=== PATIENT | male | born 1955 | race Caucasian/White ===

== ENCOUNTER 2017-05-25 17:59 | Emergency (ER) | payer OTHER ==
[2017-05-25] MEDS ORDERED: HYDROmorphone 1 MG/ML SYRINGE IM STA (18:35)
[2017-05-25] MEDS ORDERED: SODIUM CHLORIDE 0.9% 1,000 ML IV ONE ×2 (18:35→19:26)
[2017-05-25] MEDS ORDERED: ONDANSETRON 4 MG/2 ML VIAL IVP STA ×2 (18:35→19:35)
[2017-05-25 18:40] LABS: BASOPHILS # (AUTO) 0.1 10^3/uL (0.0-0.1); BASOPHILS % (AUTO) 1.1 %; EOSINOPHILS # (AUTO) 0.2 10^3/uL (0.0-0.7); EOSINOPHILS % (AUTO) 2.6 %; HCT - HEMATOCRIT 45.2 % (42.0-52.0); HGB - HEMOGLOBIN 15.3 g/dL (14.0-18.0); LYMPHOCYTES # (AUTO) 1.3 10^3/uL (1.5-3.5); LYMPHOCYTES % (AUTO) 16.6 %; MEAN CORPUSCULAR HEMOGLOBIN 31.2 pg (27.0-31.0); MEAN CORPUSCULAR HGB CONC 33.9 g/dL (32.0-36.0); MEAN CORPUSCULAR VOLUME 92.1 fL (80.0-94.0); MEAN PLATELET VOLUME 8.6 fL (7.4-11.4); MONOCYTES # (AUTO) 0.8 10^3/uL (0.0-1.0); MONOCYTES % (AUTO) 10.2 %; NEUTROPHILS # (AUTO) 5.6 10^3/uL (1.5-6.6); NEUTROPHILS % (AUTO) 69.5 %; NUCLEATED RED BLOOD CELLS AUTO 0.1 /100WBC; RED BLOOD COUNT 4.91 10^6/uL (4.70-6.10); UNCORRECTED WHITE BLOOD COUNT 8.1 x10^3/uL; WHITE BLOOD COUNT 8.1 x10^3/uL (4.8-10.8)
--- NOTE | 2017-05-25 18:40 | ED Physician Documentation ---
History of Present Illness - Stated complaint Stated Complaint: NAUSEA - Chief complaint Chief Complaint: Abd Pain - History obtained from History obtained from: Patient - Additonal information Additional information: Patient is a 62-year-old man who for the most part is fairly healthy. He does have a history of PACs, PVCs and a past history of diverticulitis as well as a inguinal hernia. The patient has had abdominal pain off and on since Tuesday. Initially the abdominal pain was lower and was associated mild nausea, vomiting and a few episodes of diarrhea. The pain is ascended somewhat and now is under his rib cage bilaterally right worse than left it sometimes radiates to the posterior back.Had a couple more episodes of nausea and vomiting and diarrhea. He denies any fever. He has not had any chest pain or shortness of breath. The episode of diverticulitis was diagnosed fairly recently so we have a CT scan that showed a normal aorta within the year. He denies having any lower urinary symptoms. Review of systems: For pertinent positive and negatives in the review of systems please see history of present illness. Otherwise all other systems have been reviewed and are negative. Dragon disclaimer: Parts of this medical record were created using voice recognition technology. Because of the inherent limitations of this system occasional same sounding word substitutions do occur and persist despite proofreading. Please read the document for context. Review of Systems Ten Systems: 10 systems reviewed and negative Constitutional: denies: Fever, Chills Cardiac: denies: Chest pain / pressure, Palpitations Respiratory: denies: Dyspnea, Cough GI: reports: Abdominal Pain, Nausea, Vomiting, Diarrhea. denies: Constipation, Hematemesis, Bloody / black stool : denies: Dysuria, Frequency, Hesitancy, Testicular pain Musculoskeletal: reports: Back pain. denies: Neck pain Neurologic: denies: Generalized weakness, Focal weakness, Numbness PD PAST MEDICAL HISTORY - Past Medical History Cardiovascular: None Respiratory: None Neuro: None Endocrine/Autoimmune: None GI: None : Benign prostate hypertrophy HEENT: None Psych: None Musculoskeletal: None Derm: None - Past Surgical History Past Surgical History: Yes Ortho: Spine surgery HEENT: Tonsil/Adenoidectomy - Present Medications Home Medications: Ambulatory Orders Medication Instructions Recorded Confirmed Doxazosin [Cardura] 8 mg PO DAILY 04/07/13 05/25/17 Finasteride 5 mg PO DAILY 04/07/13 05/25/17 Ondansetron Odt [Zofran] 4 mg TL Q6H PRN #14 tablet 05/25/17 Tramadol HCl 50 mg PO Q8HR PRN #14 tablet 05/25/17 - Allergies Allergies/Adverse Reactions: Allergies Allergy/AdvReac Type Severity Reaction Status Date / Time acetaminophen [From Endocet] Allergy Intermediate Rash Verified 04/07/13 21:55 oxycodone HCl * Allergy Intermediate Rash Verified 04/07/13 21:55 [From Endocet] - Social History Does the pt smoke?: No Smoking Status: Never smoker Does the pt drink ETOH?: No Does the pt have substance abuse?: No - Immunizations Immunizations are current?: Yes - POLST Patient has POLST: No PD ED PE NORMAL - General General: Alert and oriented X 3, No acute distress, Well developed/nourished - HEENT HEENT: Atraumatic, PERRL - Neck Neck: Supple, no meningeal sign - Cardiac Cardiac: RRR, No murmur, No gallop - Respiratory Respiratory: No respiratory distress, Clear bilaterally - Abdomen Abdomen: Normal bowel sounds, Non tender - Back Back: No CVA TTP - Derm Derm: Normal color, Warm and dry - Extremities Extremities: No deformity, No tenderness to palpate, Normal ROM s pain, No edema - Neuro Neuro: Alert and oriented X 3, 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, No motor deficit, No sensory deficit - Psych Psych: Normal mood, Normal affect Results - Vitals Vitals: Vital Signs - 24 hr 05/25/17 05/25/17 05/25/17 18:06 19:52 21:03 Temperature 36.9 C Heart Rate 75 56 L 58 L Respiratory 17 18 18 Rate Blood Pressure 142/81 H 130/76 127/71 O2 Saturation 97 96 96 Oxygen O2 Source Room air - Labs Labs: Laboratory Tests 05/25/17 05/25/17 05/25/17 18:08 18:08 18:08 WBC 8.1 RBC 4.91 Hgb 15.3 Hct 45.2 MCV 92.1 MCH 31.2 H MCHC 33.9 RDW 13.0 Plt Count 256 MPV 8.6 Neut # 5.6 Lymph # 1.3 L [place] # 0.8 Eos # 0.2 Baso # 0.1 Absolute Nucleated RBC 0.01 Nucleated RBCs 0.1 Sodium 139 Potassium 3.9 Chloride 105 Carbon Dioxide 25 Anion Gap 9.0 BUN 13 Creatinine 1.1 Estimated GFR (MDRD) 68 L Glucose 99 Calcium 9.2 Total Bilirubin 1.2 H AST 110 H ALT 98 H Alkaline Phosphatase 116 Troponin I < 0.04 Total Protein 7.2 Albumin 4.5 Globulin 2.7 Albumin/Globulin Ratio 1.7 Lipase 32 Urine Color Urine Clarity Urine pH Ur Specific [place] Urine Protein Urine Glucose (UA) Urine Ketones Urine Occult Blood Urine Nitrite Urine Bilirubin Urine Urobilinogen Ur Leukocyte Esterase Ur Microscopic Review Urine Culture Comments 05/25/17 19:11 WBC RBC Hgb Hct MCV MCH MCHC RDW Plt Count MPV Neut # Lymph # [place] # Eos # Baso # Absolute Nucleated RBC Nucleated RBCs Sodium Potassium Chloride Carbon Dioxide Anion Gap BUN Creatinine Estimated GFR (MDRD) Glucose Calcium Total Bilirubin AST ALT Alkaline Phosphatase Troponin I Total Protein Albumin Globulin Albumin/Globulin Ratio Lipase Urine Color YELLOW Urine Clarity CLEAR Urine pH 5.5 Ur Specific [place] >=1.030 H Urine Protein NEGATIVE Urine Glucose (UA) NEGATIVE Urine Ketones NEGATIVE Urine Occult Blood NEGATIVE Urine Nitrite NEGATIVE Urine Bilirubin NEGATIVE Urine Urobilinogen 2 H Ur Leukocyte Esterase NEGATIVE Ur Microscopic Review NOT INDICATED Urine Culture Comments NOT INDICATED PD MEDICAL DECISION MAKING - ED course Complexity details: reviewed old records, reviewed results, re-evaluated patient , considered differential, d/w patient ED course: Patient is a 62-year-old male who presents with a complaint of nausea, vomiting , lower abdominal pain that is now ascending. The pain at this point is now in the upper abdomen which sometimes radiates into the back. On examination he has a soft mostly nontender abdomen and some discomfort over McBurney's. Blood work shows mild elevation of his bilirubin and transaminases. My quick ultrasound demonstrated a gallstone. A formal ultrasound demonstrates gallstones and mild extrahepatic ductal dilatation. Based on these findings I did do a CT scan and the CT scan of his abdomen essentially is unremarkable.Patient is doing well clinically. He did have ketonuria and was given a liter of normal saline at this point feels better. I think the gallstones are probably causally related to his abdominal pain. We discussed the treatment plan which includes a low-fat diet pain and nausea medications as well as follow-up. The patient prefers to follow-up with his physician first and then be assigned to surgeon. At this point in time he is discharged home in improved condition Disposition: To home Clinical impression: 1. Cholelithiasis with mild extrahepatic ductal dilatation 2. Suspect biliary colic Departure - Departure Disposition: 01 Home, Self Care Clinical Impression: Colic, biliary Condition: Good Instructions: ED Gallstone W Biliary Colic Follow-Up: Max Mcclelland DO [Primary Care Provider] - Prescriptions: Tramadol HCl 50 mg PO Q8HR PRN #14 tablet PRN Reason: Pain Ondansetron Odt [Zofran] 4 mg TL Q6H PRN #14 tablet PRN Reason: Nausea / Vomiting
[2017-05-25] MEDS ORDERED: ONDANSETRON 4 MG/2 ML VIAL ONE ×2 (18:47→19:36)
[2017-05-25 19:00] LABS: ALBUMIN/GLOBULIN RATIO 1.7 (1.0-2.2); BILIRUBIN,TOTAL 1.2 mg/dL (0.2-1.0); CALCIUM 9.2 mg/dL (8.5-10.3); CREATININE 1.1 mg/dL (0.6-1.2); POTASSIUM 3.9 mmol/L (3.5-5.0); TOTAL PROTEIN 7.2 g/dL (6.7-8.2)
[2017-05-25 19:22] LABS: BILIRUBIN,URINE NEGATIVE (NEGATIVE); PH,URINE 5.5 PH (5.0-7.5)
[2017-05-25 19:25] LABS: UA CHARGE (STRIP ONLY) YES; UR CULTURE IF IND NOT INDICATED
--- NOTE | 2017-05-25 20:12 | Ultrasound Report ---
EXAM: ABDOMEN ULTRASOUND LIMITED, RUQ EXAM DATE: 05/25/2017 06:40 PM. CLINICAL HISTORY: Upper abdominal pain. Nausea. COMPARISON: None. TECHNIQUE: Real-time scanning was performed with static images obtained. FINDINGS: Liver: The liver is enlarged and slightly increased in echogenicity. No focal lesions. 16.6 cm. Main portal vein flow: Hepatopetal. Gallbladder: Multiple mobile stones in the gallbladder. No gallbladder wall thickening. No sonographi c Lockwood sign present. Biliary System: CBD measures 10 mm. No intrahepatic or extrahepatic ductal dilatation. Other: None. IMPRESSION: 1. Multiple mobile stones in the gallbladder with mild extrahepatic biliary ductal dilatation. No dis pepper stone, mass or stricture identified. No gallbladder wall thickening. No sonographic Lockwood sign e licited during the examination. Findings are equivocal and if there is continued clinical concern for acute cholecystitis a HIDA scan may be of benefit. 2. Hepatomegaly with hepatic parenchymal disease (likely fatty liver). No focal lesion. [facility] Referring Provider Line: [phone] SITE ID: [id number]
[2017-05-25] MEDS ORDERED: IOPAMIDOL-300 100 ML VIAL IVP ONE (20:25)
--- NOTE | 2017-05-25 20:40 | CT Preliminary Report ---
Exam: CT Abdomen/Pelvis W/ IMPRESSION: 1. No bowel obstruction or inflammatory process associated without. 2. Diverticulosis without diverticulitis. 3. No free air or fluid in the abdomen or pelvis. 4. Cholelithiasis without evidence of cholecystitis. [facility] SITE ID: [id number]
--- NOTE | 2017-05-25 20:42 | CT Report ---
EXAM: CT ABDOMEN AND PELVIS EXAM DATE: 05/25/2017 08:29 PM. CLINICAL HISTORY: Gen ab pain-not sure gallstones explain, hx divert. COMPARISONS: None. TECHNIQUE: Routine helical CT imaging was performed through the abdomen and pelvis. IV contrast: Amt/ type. Enteric contrast: No. Reconstructions: Coronal and sagittal. In accordance with CT protocol optimization, one or more of the following dose reduction techniques w ere utilized for this exam: automated exposure control, adjustment of mA and/or KV based on patient s ize, or use of iterative reconstructive technique. FINDINGS: Lung Bases: Unremarkable. Liver: Normal. No masses. Gallbladder/Bile Ducts: Multiple calcified stones in the gallbladder. No intrahepatic or extra hepati c biliary ductal dilatation. Spleen: Normal. Pancreas: Normal. Adrenal Glands: Normal. Kidneys: Normal. No masses or hydronephrosis. Peritoneal Cavity/Bowel: Diverticulosis without diverticulitis. No free air or fluid in the abdomen o r pelvis. No bowel obstruction. No inflammatory process associated with the bowel. The appendix is no t visualized. There are no secondary signs of acute appendicitis. Pelvic Organs: Normal. The bladder and visualized pelvic organs are within normal limits. Vasculature: No aneurysms or other significant abnormality. Bones: No significant abnormality. Other: None. IMPRESSION: 1. No bowel obstruction or inflammatory process associated without. 2. Diverticulosis without diverticulitis. 3. No free air or fluid in the abdomen or pelvis. 4. Cholelithiasis without evidence of cholecystitis. [facility] Referring Provider Line: [phone] SITE ID: [id number]
[2017-05-25 21:04] VITALS: BP 127/71
== END 2017-05-25 21:30 | disposition home or self-care (01) ==
LOC: ED 17:59
DX: K80.20 Calculus of gallbladder without cholecystitis without obstruction (principal); R82.4 Acetonuria
CPT/HCPCS: 36415; 74177; 76705; 80053; 81003; 83690; 84484; 85025; 93005; 96361; 96374; 96376; 99283; 99284; Q9967; 81001; 87086

== ENCOUNTER 2018-05-01 23:28 | Emergency (ER) | payer MEDICAID, OTHER ==
[2018-05-02 00:13] LABS: BILIRUBIN,URINE NEGATIVE (NEGATIVE); GLUCOSE, URINE (UA) NEGATIVE (NEGATIVE); KETONES,URINE (UA) NEGATIVE (NEGATIVE); LEUKOCYTE ESTERASE, URINE SMALL (NEGATIVE); NITRITE,URINE NEGATIVE (NEGATIVE); OCCULT BLOOD,URINE NEGATIVE (NEGATIVE); PROTEIN,URINE NEGATIVE (NEGATIVE); UROBILINOGEN,URINE 0.2 (NORMAL) E.U./dL (NORMAL)
[2018-05-02 00:17] LABS: CLARITY,URINE CLEAR (CLEAR)
[2018-05-02 00:18] LABS: BACTERIA,URINE Rare /HPF (None Seen); RBC,URINE 0-5 /HPF (0-5); SQUAMOUS EPITHELIAL CELL,UR NONE SEEN (<= Few)
[2018-05-02] MEDS ORDERED: PHENAZOPYRIDINE 100 MG TABLET PO STA (00:22)
[2018-05-02] MEDS ORDERED: levoFLOXacin 250 MG TABLET PO STA (00:22)
--- NOTE | 2018-05-02 00:25 | ED Physician Documentation ---
PD HPI MALE - Stated complaint Stated Complaint: MALE - Chief complaint Chief Complaint: UTI - History obtained from History obtained from: Patient - History of Present Illness Timing - onset: Yesterday Timing - details: Gradual onset, Still present Associated symptoms: Dysuria, Urinary frequency Similar symptoms before: Work up / diagnostics, Treatment Recently seen: Not recently seen - Additional information Additional information: Patient is a 63 year old male with a history of enlarged prostate who is presenting to the emergency department for dysuria and increased urinary frequency. patient reports that he has had symptoms like this in the past and it has been a urinary tract infection. Patient has been compliant with his flomax. Review of Systems Ten Systems: 10 systems reviewed and negative Constitutional: reports: Chills : reports: Dysuria, Frequency, Hesitancy PD PAST MEDICAL HISTORY - Past Medical History Past Medical History: Yes Cardiovascular: None Respiratory: None Endocrine/Autoimmune: None GI: Diverticulitis, Cholelithiasis : Benign prostate hypertrophy HEENT: None Psych: None Musculoskeletal: None Derm: None - Past Surgical History Past Surgical History: Yes General: Cholecystectomy Ortho: Rotator cuff repair, Spine surgery HEENT: Tonsil/Adenoidectomy - Present Medications Home Medications: Ambulatory Orders Medication Instructions Recorded Confirmed Doxazosin [Cardura] 8 mg PO DAILY 04/07/13 05/25/17 Finasteride 5 mg PO DAILY 04/07/13 05/25/17 Levofloxacin [Levaquin] 750 mg PO DAILY #4 tablet 05/02/18 Phenazopyridine HCl [Pyridium] 200 mg PO TID PRN #6 tablet 05/02/18 - Allergies Allergies/Adverse Reactions: Allergies Allergy/AdvReac Type Severity Reaction Status Date / Time acetaminophen [From Endocet] Allergy Intermediate Rash Verified 04/07/13 21:55 oxycodone HCl * Allergy Intermediate Rash Verified 04/07/13 21:55 [From Endocet] hydrocodone AdvReac Rash Verified 05/01/18 23:37 - Social History Does the pt smoke?: No Smoking Status: Never smoker Does the pt drink ETOH?: No Does the pt have substance abuse?: No - Immunizations Immunizations are current?: Yes - POLST Patient has POLST: No PD ED PE NORMAL - Vitals Vital signs reviewed: Yes - General General: Alert and oriented X 3, No acute distress, Well developed/nourished - HEENT HEENT: Atraumatic, PERRL - Cardiac Cardiac: RRR - Respiratory Respiratory: No respiratory distress - Abdomen Abdomen: Soft, Non distended - Derm Derm: Normal color, Warm and dry - Extremities Extremities: No deformity - Neuro Neuro: Alert and oriented X 3 Eye Opening: Spontaneous Motor: Obeys Commands Verbal: Oriented GCS Score: 15 - Psych Psych: Normal mood Results - Vitals Vitals: Vital Signs - 24 hr 05/01/18 23:32 Temperature 36.5 C Heart Rate 57 L Blood Pressure 156/77 H O2 Saturation 98 Oxygen O2 Source Room air - Labs Labs: Laboratory Tests 05/01/18 23:45 Urine Color YELLOW Urine Clarity CLEAR Urine pH 5.0 Ur Specific [place] 1.015 Urine Protein NEGATIVE Urine Glucose (UA) NEGATIVE Urine Ketones NEGATIVE Urine Occult Blood NEGATIVE Urine Nitrite NEGATIVE Urine Bilirubin NEGATIVE Urine Urobilinogen 0.2 (NORMAL) Ur Leukocyte Esterase SMALL H Urine RBC 0-5 Urine WBC >25 H Ur Squamous Epith Cells NONE SEEN Urine Bacteria Rare Urine Culture Comments INDICATED PD MEDICAL DECISION MAKING - ED course Complexity details: reviewed old records, reviewed results, re-evaluated patient , considered differential, d/w patient ED course: Patient was seen and examined at bedside. Patient's urine was collected and was consistent with a urinary tract infection. patient was treated with pyridium and levaquin. Patient was well appearing and able to tolerate PO without difficulty. Patient required no further inpatient work up at this time and was stable for discharge with outpatient follow up. - Sepsis Event Vital Signs: Vital Signs - 24 hr 05/01/18 23:32 Temperature 36.5 C Heart Rate 57 L Blood Pressure 156/77 H O2 Saturation 98 Oxygen O2 Source Room air Departure - Departure Disposition: 01 Home, Self Care Clinical Impression: Urinary tract infection Condition: Good Instructions: ED UTI Cystitis Male Follow-Up: Max Mcclelland DO [Primary Care Provider] - Within 3 Days Prescriptions: Levofloxacin [Levaquin] 750 mg PO DAILY #4 tablet Phenazopyridine HCl [Pyridium] 200 mg PO TID PRN #6 tablet PRN Reason: dysuria Comments: Your symptoms today are being caused by a urinary tract infection. you are being treated with your first dose of antibiotics tonight and will need to be on them for the next 4 days. You should make sure you stay well hydrated, doubling your normal fluid intake over the next few days. You should follow up with your doctor if your symptoms don't improve. you may return to the emergency department at any time for new, worsening or uncontrollable symptoms.
[2018-05-02 00:49] VITALS: BP 130/85
== END 2018-05-02 01:07 | disposition home or self-care (01) ==
LOC: ED 23:28
DX: N39.0 Urinary tract infection, site not specified (principal); N40.0 Benign prostatic hyperplasia without lower urinary tract symptoms
CPT/HCPCS: 81001; 87086; 99282; 99283; A9270; 87181

== ENCOUNTER 2018-09-18 08:56 | Outpatient (CLI) | payer MEDICAID ==
[2018-09-18 19:10] LABS: BUN - BLOOD UREA NITROGEN 16 mg/dL (6-20); CALCIUM 9.3 mg/dL (8.5-10.3); CARBON DIOXIDE - CO2 26 mmol/L (21-32); CHLORIDE 106 mmol/L (101-111); CHOL/HDL RATIO 4.7 (<5.0); CHOLESTEROL 214 mg/dL; CREATININE 1.1 mg/dL (0.6-1.2); GFR - MDRD 68 (>89); GLUCOSE 88 mg/dL (70-100); HDL CHOLESTEROL 46 mg/dL; LDL CHOLESTEROL,CALCULATED 143 mg/dL; LDL/HDL RATIO 3.1 (<3.6); SODIUM 138 mmol/L (135-145); VLDL CHOLESTEROL 25 mg/dL
== END 2018-09-18 08:57 | disposition home or self-care (01) ==
LOC: LAB.F 08:56
PROVIDERS: ATTEND Internal Medicine
DX: Z00.00 Encounter for general adult medical examination without abnormal findings (principal)
CPT/HCPCS: 36415; 80048; 80061; 83721

== ENCOUNTER 2019-06-07 12:43 | Emergency (ER) | payer BC, MEDICAID ==
[2019-06-07 12:49] VITALS: BP 150/76
--- NOTE | 2019-06-07 12:52 | ED Physician Documentation ---
History of Present Illness - Stated complaint Stated Complaint: BEE STING - Chief complaint Chief Complaint: Allergic Rx - History obtained from History obtained from: Patient - History of Present Illness Timing: Prior to arrival - Additonal information Additional information: Patient is a 64-year-old male presenting to the ED with concern for bee sting directly below the left eye about 2 hours ago. Patient reports mild swelling and discomfort, but no vision change, eye discharge, or other rash or erythema. Patient also denies lip or oral swelling, difficulty swallowing, difficulty breathing. Patient has not tried any medications or other therapies yet. No other improving or worsening factors noted. Review of Systems Eyes: denies: Loss of vision, Decreased vision, Photophobia, Discharge, Irritation Respiratory: denies: Dyspnea, Cough GI: denies: Nausea, Vomiting Skin: reports: Bite / sting. denies: Rash, Abrasion (s), Laceration (s) PD PAST MEDICAL HISTORY - Past Medical History Cardiovascular: None Respiratory: None Endocrine/Autoimmune: None GI: Diverticulitis, Cholelithiasis : Benign prostate hypertrophy HEENT: None Psych: None Musculoskeletal: None Derm: None - Past Surgical History Past Surgical History: Yes General: Cholecystectomy Ortho: Rotator cuff repair, Spine surgery HEENT: Tonsil/Adenoidectomy - Present Medications Home Medications: Ambulatory Orders Medication Instructions Recorded Confirmed Doxazosin [Cardura] 8 mg PO DAILY 04/07/13 05/25/17 Finasteride 5 mg PO DAILY 04/07/13 05/25/17 Levofloxacin [Levaquin] 750 mg PO DAILY #4 tablet 05/02/18 Phenazopyridine HCl [Pyridium] 200 mg PO TID PRN #6 tablet 05/02/18 - Allergies Allergies/Adverse Reactions: Allergies Allergy/AdvReac Type Severity Reaction Status Date / Time acetaminophen [From Endocet] Allergy Intermediate Rash Verified 06/07/19 12:49 oxycodone HCl * Allergy Intermediate Rash Verified 06/07/19 12:49 [From Endocet] hydrocodone AdvReac Rash Verified 06/07/19 12:49 - Social History Does the pt smoke?: No Smoking Status: Never smoker Does the pt drink ETOH?: No Does the pt have substance abuse?: No - Immunizations Immunizations are current?: Yes - POLST Patient has POLST: No PD ED PE NORMAL - Vitals Vital signs reviewed: Yes - General General: Alert and oriented X 3, No acute distress, Well developed/nourished - HEENT HEENT: Atraumatic, Moist mucous membranes, Pharynx benign, Dentition benign, Other (No evidence of periorbital swelling, intraoral or lip swelling) - Cardiac Cardiac: RRR, No murmur - Respiratory Respiratory: No respiratory distress, Clear bilaterally - Derm Derm: Normal color, Warm and dry, No rash - Extremities Extremities: No deformity, No tenderness to palpate - Neuro Neuro: Alert and oriented X 3, No motor deficit, No sensory deficit - Psych Psych: Normal mood, Normal affect Results - Vitals Vitals: Vital Signs - 24 hr 06/07/19 12:45 Temperature 35.9 C L Heart Rate 57 L Respiratory 18 Rate Blood Pressure 150/76 H O2 Saturation 98 Oxygen O2 Source Room air PD MEDICAL DECISION MAKING - ED course Complexity details: considered differential, d/w patient ED course: Patient presenting with report of bee sting below the left eye. No evidence of retained stinger or even a significant local allergic reaction. Certainly no respiratory component, rash, hives, or anaphylaxis. Do not feel patient requires medications at this time and is otherwise safe to discharge home. Discussed supportive cares, return precautions, and appropriate follow-up. Patient voiced understanding and is comfortable with discharge plan. Departure - Departure Disposition: 01 Home, Self Care Clinical Impression: Bee sting Qualifiers: Encounter type: initial encounter Injury intent: accidental or unintentional Q ualified Code(s): T63.441A - Toxic effect of venom of bees, accidental (unintentional), initial encounter Condition: Good Instructions: ED Bite Sting Insect Gen Allergic React Follow-Up: Max Mcclelland DO [Primary Care Provider] - Within 3 Days Comments: Recommend ice application for swelling, as well as ibuprofen/Tylenol as needed. May use Benadryl if experience rash or itchiness. Please follow-up with primary care physician in next 2 to 3 days and return to ED sooner if experience worsening symptoms or have other concerns.
== END 2019-06-07 13:11 | disposition home or self-care (01) ==
LOC: ED 12:43
DX: T63.441A Toxic effect of venom of bees, accidental (unintentional), initial encounter (principal)
CPT/HCPCS: 99281; 99282

== ENCOUNTER 2019-09-24 10:49 | Outpatient (CLI) | payer BC ==
[2019-09-24 11:06] LABS: BASOPHILS # (AUTO) 0.1 10^3/uL (0.0-0.1); BASOPHILS % (AUTO) 1.2 %; EOSINOPHILS # (AUTO) 0.2 10^3/uL (0.0-0.7); EOSINOPHILS % (AUTO) 3.4 %; HGB - HEMOGLOBIN 14.9 g/dL (14.0-18.0); LYMPHOCYTES # (AUTO) 1.3 10^3/uL (1.5-3.5); LYMPHOCYTES % (AUTO) 25.5 %; MEAN CORPUSCULAR HEMOGLOBIN 31.1 pg (27.0-31.0); MEAN CORPUSCULAR VOLUME 94.2 fL (80.0-94.0); MEAN PLATELET VOLUME 9.6 fL (7.4-11.4); MONOCYTES # (AUTO) 0.5 10^3/uL (0.0-1.0); MONOCYTES % (AUTO) 10.8 %; NEUTROPHILS # (AUTO) 2.9 10^3/uL (1.5-6.6); NEUTROPHILS % (AUTO) 58.7 %; PLT - PLATELET COUNT 247 10^3/uL (130-450); RED BLOOD COUNT 4.79 10^6/uL (4.70-6.10); RED CELL DISTRIBUTION WIDTH 12.1 % (12.0-15.0)
[2019-09-24 11:21] LABS: ALBUMIN 4.6 g/dL (3.2-5.5); ALBUMIN/GLOBULIN RATIO 1.6 (1.0-2.2); CALCIUM 9.5 mg/dL (8.5-10.3); CREATININE 1.1 mg/dL (0.6-1.2); TOTAL PROTEIN 7.4 g/dL (6.7-8.2)
== END 2019-09-24 10:50 | disposition home or self-care (01) ==
LOC: LAB 10:49
PROVIDERS: ATTEND Internal Medicine
DX: I25.10 Atherosclerotic heart disease of native coronary artery without angina pectoris (principal)
CPT/HCPCS: 36415; 80053; 84443; 85025

== ENCOUNTER 2019-11-20 17:18 | Emergency (ER) | payer BC, OTHER ==
[2019-11-20 17:39] VITALS: BP 153/76
--- NOTE | 2019-11-20 17:57 | ED Physician Documentation ---
PD HPI MALE - Stated complaint Stated Complaint: M - Chief complaint Chief Complaint: UTI - History obtained from History obtained from: Patient - History of Present Illness Timing - onset: Today, Yesterday Timing - duration: Days (1-2) Timing - details: Gradual onset, Still present Associated symptoms: Dysuria, Urinary frequency. No: Hematuria, Discharge Similar symptoms before: Diagnosis (UTI episodically) Recently seen: Not recently seen Review of Systems Constitutional: denies: Fever, Chills, Myalgias GI: denies: Nausea, Vomiting, Diarrhea : reports: Dysuria, Frequency. denies: Hematuria, Discharge Musculoskeletal: denies: Back pain PD PAST MEDICAL HISTORY - Past Medical History Cardiovascular: None Respiratory: None Neuro: None Endocrine/Autoimmune: None GI: Diverticulitis, Cholelithiasis : Benign prostate hypertrophy HEENT: None Psych: None Musculoskeletal: None Derm: None - Past Surgical History Past Surgical History: Yes General: Cholecystectomy Ortho: Rotator cuff repair, Spine surgery HEENT: Tonsil/Adenoidectomy - Present Medications Home Medications: Ambulatory Orders Medication Instructions Recorded Confirmed Doxazosin [Cardura] 8 mg PO DAILY 04/07/13 05/25/17 Finasteride 5 mg PO DAILY 04/07/13 05/25/17 Levofloxacin [Levaquin] 750 mg PO DAILY #4 tablet 05/02/18 Phenazopyridine HCl [Pyridium] 200 mg PO TID PRN #6 tablet 05/02/18 Phenazopyridine HCl [Pyridium] 100 mg PO TID PRN #15 tablet 11/20/19 levoFLOXacin [Levofloxacin] 500 mg PO DAILY #5 tablet 11/20/19 - Allergies Allergies/Adverse Reactions: Allergies Allergy/AdvReac Type Severity Reaction Status Date / Time acetaminophen [From Endocet] Allergy Intermediate Rash Verified 11/20/19 17:35 oxycodone HCl * Allergy Intermediate Rash Verified 11/20/19 17:35 [From Endocet] hydrocodone AdvReac Rash Verified 11/20/19 17:35 - Social History Does the pt smoke?: No Smoking Status: Never smoker Does the pt drink ETOH?: No Does the pt have substance abuse?: No - Immunizations Immunizations are current?: Yes - POLST Patient has POLST: No PD ED PE NORMAL - Vitals Vital signs reviewed: Yes - General General: Alert and oriented X 3, No acute distress, Well developed/nourished - Abdomen Abdomen: Soft, Non tender - Male Male : Deferred - Back Back: No CVA TTP Results - Vitals Vitals: Vital Signs - 24 hr 11/20/19 17:36 Temperature 36.6 C Heart Rate 63 Respiratory 16 Rate Blood Pressure 153/76 H O2 Saturation 96 Oxygen O2 Source Room air - Labs Labs: Laboratory Tests 11/20/19 17:25 Urine Color YELLOW Urine Clarity HAZY Urine pH 6.0 Ur Specific [place] <=1.005 Urine Protein NEGATIVE Urine Glucose (UA) NEGATIVE Urine Ketones NEGATIVE Urine Occult Blood SMALL H Urine Nitrite NEGATIVE Urine Bilirubin NEGATIVE Urine Urobilinogen 0.2 (NORMAL) Ur Leukocyte Esterase SMALL H Urine RBC 0-5 Urine WBC >25 H Urine WBC Clumps PRESENT Ur Squamous Epith Cells NONE SEEN Urine Bacteria Few Ur Microscopic Review INDICATED Urine Culture Comments INDICATED PD MEDICAL DECISION MAKING - ED course Complexity details: considered differential, d/w patient Departure - Departure Disposition: Home, Self Care Clinical Impression: Dysuria Urinary tract infection Qualifiers: Urinary tract infection type: acute cystitis Hematuria presence: without hematuria Qualified Code(s): N30.00 - Acute cystitis without hematuria Condition: Stable Record reviewed to determine appropriate education?: Yes Instructions: ED UTI Cystitis Male Follow-Up: Max Mcclelland DO [Primary Care Provider] - Prescriptions: levoFLOXacin [Levofloxacin] 500 mg PO DAILY #5 tablet Phenazopyridine HCl [Pyridium] 100 mg PO TID PRN #15 tablet PRN Reason: Abdominal Pain Comments: Continue usual medications. Stay well-hydrated. Phenazopyridine as needed for urinary discomfort. Tylenol if needed as well. Levofloxacin daily for 5 days for the infection. Recheck if not improved well over the next few days. Discharge Date/Time: 11/20/19 18:55
[2019-11-20 18:01] LABS: BILIRUBIN,URINE NEGATIVE (NEGATIVE); GLUCOSE, URINE (UA) NEGATIVE (NEGATIVE); KETONES,URINE (UA) NEGATIVE (NEGATIVE); LEUKOCYTE ESTERASE, URINE SMALL (NEGATIVE); NITRITE,URINE NEGATIVE (NEGATIVE); OCCULT BLOOD,URINE SMALL (NEGATIVE); PROTEIN,URINE NEGATIVE (NEGATIVE); UROBILINOGEN,URINE 0.2 (NORMAL) E.U./dL (NORMAL)
[2019-11-20 18:02] LABS: CLARITY,URINE HAZY (CLEAR)
[2019-11-20] MEDS ORDERED: PHENAZOPYRIDINE 100 MG TABLET PO STA (18:14)
[2019-11-20 18:15] LABS: BACTERIA,URINE Few /HPF (None Seen); RBC,URINE 0-5 /HPF (0-5); SQUAMOUS EPITHELIAL CELL,UR NONE SEEN (<= Few); WBC CLUMPS,URINE PRESENT
[2019-11-20] MEDS ORDERED: levoFLOXacin 250 MG TABLET PO STA (18:15)
== END 2019-11-20 18:55 | disposition home or self-care (01) ==
LOC: ED 17:18
DX: N30.00 Acute cystitis without hematuria (principal)
CPT/HCPCS: 51798; 81001; 87077; 87086; 87181; 99283; A9270; 81003

== ENCOUNTER 2021-02-09 11:56 | Emergency (ER) | payer OTHER ==
[2021-02-09 12:28] LABS: BILIRUBIN,URINE NEGATIVE (NEGATIVE); GLUCOSE, URINE (UA) NEGATIVE (NEGATIVE); KETONES,URINE (UA) NEGATIVE (NEGATIVE); LEUKOCYTE ESTERASE, URINE NEGATIVE (NEGATIVE); NITRITE,URINE NEGATIVE (NEGATIVE); OCCULT BLOOD,URINE NEGATIVE (NEGATIVE); PH,URINE 5.5 PH (5.0-7.5); PROTEIN,URINE NEGATIVE (NEGATIVE); UROBILINOGEN,URINE 0.2 (NORMAL) E.U./dL (NORMAL)
[2021-02-09 12:30] LABS: CLARITY,URINE CLEAR (CLEAR)
[2021-02-09 12:32] LABS: BASOPHILS # (AUTO) 0.1 10^3/uL (0.0-0.1); BASOPHILS % (AUTO) 1.2 %; EOSINOPHILS # (AUTO) 0.1 10^3/uL (0.0-0.7); EOSINOPHILS % (AUTO) 2.2 %; HCT - HEMATOCRIT 45.7 % (42.0-52.0); HGB - HEMOGLOBIN 15.4 g/dL (14.0-18.0); LYMPHOCYTES # (AUTO) 1.6 10^3/uL (1.5-3.5); LYMPHOCYTES % (AUTO) 26.4 %; MEAN CORPUSCULAR HEMOGLOBIN 31.5 pg (27.0-31.0); MEAN CORPUSCULAR HGB CONC 33.7 g/dL (32.0-36.0); MEAN CORPUSCULAR VOLUME 93.5 fL (80.0-94.0); MEAN PLATELET VOLUME 9.8 fL (7.4-11.4); MONOCYTES # (AUTO) 0.4 10^3/uL (0.0-1.0); MONOCYTES % (AUTO) 7.3 %; NEUTROPHILS # (AUTO) 3.8 10^3/uL (1.5-6.6); NEUTROPHILS % (AUTO) 62.6 %; PLT - PLATELET COUNT 275 10^3/uL (130-450); RED BLOOD COUNT 4.89 10^6/uL (4.70-6.10); RED CELL DISTRIBUTION WIDTH 12.1 % (12.0-15.0)
[2021-02-09 12:43] LABS: ALBUMIN 4.9 g/dL (3.2-5.5); ALBUMIN/GLOBULIN RATIO 1.8 (1.0-2.2); BILIRUBIN,TOTAL 0.4 mg/dL (0.2-1.0); CALCIUM 10.2 mg/dL (8.5-10.3); CREATININE 1.1 mg/dL (0.6-1.2); TOTAL PROTEIN 7.7 g/dL (6.7-8.2)
[2021-02-09] MEDS ORDERED: KETOROLAC 30 MG/ML VIAL IVP STA (12:49)
--- NOTE | 2021-02-09 12:51 | ED Physician Documentation ---
PD HPI ABD PAIN - Stated complaint Stated Complaint: MALE - Chief complaint Chief Complaint: Abd Pain - History obtained from History obtained from: Patient - Additional information Additional information: 65-year-old gentleman with history of A. fib status post ablation and not anticoagulated, BPH, diverticulitis presents with abdominal pain. He kind of has a chronic recurrent right lower quadrant pain that bothers him at times but today he has had left lower quadrant pain radiating to left testicle that is worse with certain motions and associated with poor appetite and nonbloody diarrhea. There is no fever or nausea. No history of abdominal surgeries, Except for cholecystectomy. Review of Systems Ten Systems: 10 systems reviewed and negative Constitutional: denies: Fever, Chills Cardiac: denies: Chest pain / pressure, Palpitations Respiratory: denies: Dyspnea, Cough PD PAST MEDICAL HISTORY - Past Medical History Cardiovascular: None Respiratory: None Neuro: None Endocrine/Autoimmune: None GI: Diverticulitis, Cholelithiasis : Benign prostate hypertrophy HEENT: None Psych: None Musculoskeletal: None Derm: None - Past Surgical History Past Surgical History: Yes General: Cholecystectomy Ortho: Rotator cuff repair, Spine surgery HEENT: Tonsil/Adenoidectomy - Present Medications Home Medications: Ambulatory Orders Medication Instructions Recorded Confirmed Doxazosin [Cardura] 8 mg PO DAILY 04/07/13 02/09/21 Finasteride 5 mg PO DAILY 04/07/13 02/09/21 Levofloxacin [Levaquin] 500 mg PO DAILY #10 tablet 02/09/21 - Allergies Allergies/Adverse Reactions: Allergies Allergy/AdvReac Type Severity Reaction Status Date / Time acetaminophen [From Endocet] Allergy Intermediate Rash Verified 02/09/21 12:07 oxycodone HCl * Allergy Intermediate Rash Verified 02/09/21 12:07 [From Endocet] hydrocodone AdvReac Rash Verified 02/09/21 12:07 - Social History Does the pt smoke?: No Smoking Status: Never smoker Does the pt drink ETOH?: No Does the pt have substance abuse?: No - Immunizations Immunizations are current?: Yes - POLST Patient has POLST: No PD ED PE NORMAL - Vitals Vital signs reviewed: Yes - General General: Alert and oriented X 3, No acute distress - HEENT HEENT: PERRL, EOMI - Neck Neck: Supple, no meningeal sign, No bony TTP - Cardiac Cardiac: RRR, No murmur - Respiratory Respiratory: No respiratory distress, Clear bilaterally - Abdomen Abdomen: Normal bowel sounds, Soft, Other (Tender in the left lower quadrant and suprapubic area without surgical signs, testicles appear normal without swelling, mild left testicular tenderness.) - Back Back: No CVA TTP, No spinal TTP - Derm Derm: Normal color, Warm and dry - Extremities Extremities: No edema, No calf tenderness / cord - Neuro Neuro: Alert and oriented X 3, Normal speech Results - Vitals Vitals: Vital Signs - 24 hr 02/09/21 02/09/21 02/09/21 12:06 14:20 14:41 Temperature 36.6 C 36.4 C L 37.3 C Heart Rate 86 87 Respiratory 18 17 Rate Blood Pressure 172/97 H 135/85 H O2 Saturation 100 97 Oxygen O2 Source Room air - Labs Labs: Laboratory Tests 02/09/21 02/09/21 02/09/21 12:17 12:25 12:25 WBC 6.0 RBC 4.89 Hgb 15.4 Hct 45.7 MCV 93.5 MCH 31.5 H MCHC 33.7 RDW 12.1 Plt Count 275 MPV 9.8 Neut # (Auto) 3.8 Lymph # (Auto) 1.6 Alfalfa # (Auto) 0.4 Eos # (Auto) 0.1 Baso # (Auto) 0.1 Absolute Nucleated RBC 0.00 Nucleated RBC % 0.0 Sodium 140 Potassium 4.0 Chloride 100 L Carbon Dioxide 24 Anion Gap 16.0 H BUN 9 Creatinine 1.1 Estimated GFR (MDRD) 67 L Glucose 94 Calcium 10.2 Total Bilirubin 0.4 AST 26 ALT 30 Alkaline Phosphatase 91 Total Protein 7.7 Albumin 4.9 Globulin 2.8 Albumin/Globulin Ratio 1.8 Lipase 26 Urine Color YELLOW Urine Clarity CLEAR Urine pH 5.5 Ur Specific [place] 1.015 Urine Protein NEGATIVE Urine Glucose (UA) NEGATIVE Urine Ketones NEGATIVE Urine Occult Blood NEGATIVE Urine Nitrite NEGATIVE Urine Bilirubin NEGATIVE Urine Urobilinogen 0.2 (NORMAL) Ur Leukocyte Esterase NEGATIVE Ur Microscopic Review NOT INDICATED Urine Culture Comments NOT INDICATED - Rads (name of study) CT A/P Radiology: EMP read contemporaneously PD MEDICAL DECISION MAKING - ED course ED course: 65-year-old gentleman with history of diverticulitis presents with left lower quadrant left testicular pain. He was doing much better after Toradol. Lab work is basically normal. CT with IV contrast: 1. Extensive colonic diverticulosis, no CT evidence of acute diverticulitis. No abscess collection. No free fluid of free air. No bowel obstruction. 2. Stable appearing tiny hypodensities seen in liver parenchyma unchanged from 2017 study and likely represent hepatic cysts. 3. Patient is status post interval cholecystectomy. Repeat examination after CT still has some left lower quadrant and left testicular tenderness. Potentially prominent epidydimis. Normal lie. Will order ultrasound. This demonstrates a pattern consistent with epididymitis on the left which is treated with antibiotics. He has no concern for STDs. Departure - Departure Disposition: 01 Home, Self Care Clinical Impression: Epididymitis Abdominal pain Qualifiers: Abdominal location: left lower quadrant Qualified Code(s): R10.32 - Left lower quadrant pain Condition: Good Record reviewed to determine appropriate education?: Yes Instructions: Epididymitis Dc Prescriptions: Levofloxacin [Levaquin] 500 mg PO DAILY #10 tablet Comments: Follow-up with your physician in a week if not better, return for new or worsening symptoms. Tylenol or ibuprofen as needed for pain. Discharge Date/Time: 02/09/21 15:45
[2021-02-09] MEDS ORDERED: IOVERSOL 320 100 ML VIAL IVP ONE ×2 (13:18→13:30)
--- NOTE | 2021-02-09 13:47 | CT Report ---
PROCEDURE: Abdomen/Pelvis W INDICATIONS: IV only, LLQ pain CONTRAST: IV CONTRAST: Optiray 320 ml: 100 PO CONTRAST: *NO PO CONTRAST TECHNIQUE: After the administration of IV contrast, 5 mm thick sections acquired from the diaphragms to the symp hysis. 5 mm thick coronal and sagittal reformats were acquired. For radiation dose reduction, the f ollowing was used: automated exposure control, adjustment of mA and/or kV according to patient size. COMPARISON: None. FINDINGS: Image quality: Excellent. ABDOMEN: Lung bases: Mild left basilar dependent atelectasis is seen. Heart size is normal. Solid organs: Liver is normal in size. Tiny well-circumscribed hypodense areas are noted in left and right hepatic lobes and measures up to 5 mm in size in left hepatic lobe unchanged from previous valentine dy and likely represent hepatic cysts. Spleen is normal in size and enhancement. Gallbladder is surgi lisbeth absent. Biliary system is non dilated. Pancreas enhances normally. No adrenal nodules. Kidn eys demonstrate normal size and enhancement, without hydronephrosis. Peritoneum and bowel: There is a small hiatal hernia. Bowel loops demonstrate normal wall thickness a nd caliber. No free fluid or air. Extensive colonic diverticulosis is seen particularly involving d istal descending colon and sigmoid colon. No CT evidence of acute diverticulitis. No abscess collecti on. No extraluminal air is seen. Nodes and vessels: No retroperitoneal or mesenteric adenopathy by size criteria. Aorta and inferior vena cava are normal in size. Miscellaneous: No ventral hernias. PELVIS: Genitourinary: Bladder wall thickness is normal. Miscellaneous: No inguinal adenopathy. Bilateral inguinal hernias are seen containing fat only. Bones: No suspicious bony lesions. No vertebral body compression fractures. Degenerative disc dise ase at L1-2 and L5-S1 levels are seen. IMPRESSION: 1. Extensive colonic diverticulosis, no CT evidence of acute diverticulitis. No abscess collection. N o free fluid of free air. No bowel obstruction. 2. Stable appearing tiny hypodensities seen in liver parenchyma unchanged from 2017 study and likely represent hepatic cysts. 3. Patient is status post interval cholecystectomy. Reviewed by: Charles Carlton MD on 02/09/2021 1:46 PM PDT Approved by: Charles Carlton MD on 02/09/2021 1:46 PM PDT Station ID: [id number]
[2021-02-09 14:21] VITALS: BP 135/85
--- NOTE | 2021-02-09 15:45 | Ultrasound Report ---
PROCEDURE: Testicle w/Doppler INDICATIONS: L testicle pain TECHNIQUE: Real-time scanning was performed of the scrotum and testicles, with image documentation. Color and p ulse Doppler interrogation was performed of both testicles. COMPARISON: None. FINDINGS: Right: Testicle is normal in size at 5.3 x 2.2 x 3.3 cm, and homogenous in echotexture. Epididymis is normal in overall size and morphology. No hydrocele or varicoceles. Overlying scrotal skin is no rmal in thickness. Left: Testicle is normal in size at 2.0 x 3.5 x 4.4 cm, and homogeneous in echotexture. Epididymis is normal in overall size and morphology. No hydrocele or varicoceles. Overlying scrotal skin is no rmal in thickness. Doppler: Color and pulse Doppler demonstrate normal and symmetric arterial flow in both testicles bu t there is elevated blood flow involving the left epididymis consistent with mild epididymitis.. IMPRESSION: No suspicion for testicular torsion is present but there is mild asymmetric elevated epididymal blood flow on the left consistent with epididymitis. Reviewed by: Quintin Stone MD on 02/09/2021 3:43 PM PDT Approved by: Quintin Stone MD on 02/09/2021 3:43 PM PDT Station ID: [id number]
--- OUTSIDE RECORDS SUMMARY | 2021-02-17 21:26 | EXTERNAL MEDICAL SUMMARY RPT | Continuity of Care Document ---
:1955 Demographics Phone Unavailable Preferred Language Unknown Marital Status Unknown Mormonism Affiliation Unknown Race Unknown Ethnic Group Unknown Author Organization [place] Address [address] [phone] Phone Social History date description facility [phone]
== END 2021-02-09 15:45 | disposition home or self-care (01) ==
LOC: ED 11:56
DX: N45.1 Epididymitis (principal); K57.30 Diverticulosis of large intestine without perforation or abscess without bleeding; N50.812 Left testicular pain; I48.91 Unspecified atrial fibrillation
CPT/HCPCS: 36415; 74177; 76870; 80053; 81003; 83690; 85025; 93975; 96374; 99284; Q9967; 81001; 87086

== ENCOUNTER 2021-06-27 12:58 | Emergency (ER) | payer OTHER ==
--- NOTE | 2021-06-27 13:41 | ED Physician Documentation ---
PD HPI CHEST PAIN - Stated complaint Stated Complaint: IRREGULAR PULSE - Chief complaint Chief Complaint: Cardiac - History obtained from History obtained from: Patient - Additional information Additional information: 66-year-old gentleman with history of of atrial fibrillation. 2 years ago had an ablation for same. Really has not had trouble with A. fib since until a week ago he felt like he was in A. fib for about half the day. It feels like a sternal pounding with shortness of breath and mild dizziness. It went away and then it recurred this morning. He had a syncopal episode with it. He had taken a flecainide and now feels completely better. There was no injury from the syncope. Review of Systems Ten Systems: 10 systems reviewed and negative Constitutional: reports: Fatigue (better) Eyes: reports: Reviewed and negative Ears: reports: Reviewed and negative Nose: reports: Reviewed and negative PD PAST MEDICAL HISTORY - Past Medical History Cardiovascular: None Respiratory: None Neuro: None Endocrine/Autoimmune: None GI: Diverticulitis, Cholelithiasis : Benign prostate hypertrophy HEENT: None Psych: None Musculoskeletal: None Derm: None - Past Surgical History Past Surgical History: Yes General: Cholecystectomy Ortho: Rotator cuff repair, Spine surgery HEENT: Tonsil/Adenoidectomy - Present Medications Home Medications: Ambulatory Orders Medication Instructions Recorded Confirmed Doxazosin [Cardura] 8 mg PO DAILY 04/07/13 02/09/21 Finasteride 5 mg PO DAILY 04/07/13 02/09/21 levoFLOXacin [Levaquin] 500 mg PO DAILY #10 tablet 02/09/21 - Allergies Allergies/Adverse Reactions: Allergies Allergy/AdvReac Type Severity Reaction Status Date / Time oxycodone HCl * Allergy Intermediate Rash Verified 06/27/21 13:08 [From Endocet] hydrocodone AdvReac Rash Verified 06/27/21 13:08 - Social History Does the pt smoke?: No Smoking Status: Never smoker Does the pt drink ETOH?: No Does the pt have substance abuse?: No - Immunizations Immunizations are current?: Yes - POLST Patient has POLST: No PD ED PE NORMAL - Vitals Vital signs reviewed: Yes - General General: Alert and oriented X 3, No acute distress - HEENT HEENT: PERRL, EOMI - Neck Neck: Supple, no meningeal sign, No bony TTP - Cardiac Cardiac: RRR, No murmur - Respiratory Respiratory: No respiratory distress, Clear bilaterally - Abdomen Abdomen: Normal bowel sounds, Soft, Non tender - Back Back: No CVA TTP, No spinal TTP - Derm Derm: Normal color, Warm and dry - Extremities Extremities: No edema, No calf tenderness / cord - Neuro Neuro: Alert and oriented X 3, Normal speech - Psych Psych: Normal mood, Normal affect Results - Vitals Vitals: Vital Signs - 24 hr 06/27/21 06/27/21 13:08 13:37 Temperature 36.5 C Heart Rate 86 69 Respiratory 16 21 Rate Blood Pressure 142/79 H 135/104 H O2 Saturation 98 95 Oxygen O2 Source Room air - EKG (time done) 1316 Rate: Rate (enter#) (86) Rhythm: NSR [place]: Normal Intervals: Normal [place] Ischemia: Q waves (anterior), Non specific changes. No: ST elevation c/w ischemia, ST depression - Labs Labs: Laboratory Tests 06/27/21 06/27/21 06/27/21 13:24 13:24 13:24 WBC 4.7 L RBC 5.11 Hgb 16.0 Hct 47.7 MCV 93.3 MCH 31.3 H MCHC 33.5 RDW 12.2 Plt Count 266 MPV 9.3 Neut # (Auto) 2.8 Lymph # (Auto) 1.3 L [place] # (Auto) 0.4 Eos # (Auto) 0.1 Baso # (Auto) 0.1 Absolute Nucleated RBC 0.00 Nucleated RBC % 0.0 Sodium 143 Potassium 3.9 Chloride 107 Carbon Dioxide 27 Anion Gap 9.0 BUN 10 Creatinine 1.0 Estimated GFR (MDRD) 75 L Glucose 116 H Calcium 9.4 Total Bilirubin 0.8 AST 16 ALT 14 Alkaline Phosphatase 83 Troponin I High Sens 5.4 Total Protein 6.9 Albumin 4.2 Globulin 2.7 Albumin/Globulin Ratio 1.6 Lipase 31 TSH 06/27/21 13:24 WBC RBC Hgb Hct MCV MCH MCHC RDW Plt Count MPV Neut # (Auto) Lymph # (Auto) [place] # (Auto) Eos # (Auto) Baso # (Auto) Absolute Nucleated RBC Nucleated RBC % Sodium Potassium Chloride Carbon Dioxide Anion Gap BUN Creatinine Estimated GFR (MDRD) Glucose Calcium Total Bilirubin AST ALT Alkaline Phosphatase Troponin I High Sens Total Protein Albumin Globulin Albumin/Globulin Ratio Lipase TSH 0.87 - Rads (name of study) 1v cxr Radiology: EMP read contemporaneously (NAD) PD MEDICAL DECISION MAKING - ED course ED course: 66-year-old gentleman with what sounds like a resolved episode of atrial fibrillation causing syncope. He had taken a flecainide and this may have converted him. He is in normal sinus rhythm here. He remained stable during a greater than 1 hour observation. With a few PVCs on the monitor but they were very infrequent. No concerning arrhythmias. Departure - Departure Disposition: 01 Home, Self Care Clinical Impression: Atrial fibrillation Qualifiers: Atrial fibrillation type: paroxysmal Qualified Code(s): I48.0 - Paroxysmal atrial fibrillation Syncope Qualifiers: Syncope type: unspecified Qualified Code(s): R55 - Syncope and collapse Condition: Good Record reviewed to determine appropriate education?: Yes Instructions: ED Fainting Unkn Cause Comments: Talk with your doctor about a Holter monitor, call him this coming week. Have a low threshold to take a flecainide per package instructions if symptoms recur. Return for new or worsening symptoms.
[2021-06-27 13:42] LABS: BASOPHILS # (AUTO) 0.1 10^3/uL (0.0-0.1); BASOPHILS % (AUTO) 1.5 %; EOSINOPHILS # (AUTO) 0.1 10^3/uL (0.0-0.7); HCT - HEMATOCRIT 47.7 % (42.0-52.0); LYMPHOCYTES # (AUTO) 1.3 10^3/uL (1.5-3.5); LYMPHOCYTES % (AUTO) 26.8 %; MEAN CORPUSCULAR HEMOGLOBIN 31.3 pg (27.0-31.0); MEAN CORPUSCULAR HGB CONC 33.5 g/dL (32.0-36.0); MEAN CORPUSCULAR VOLUME 93.3 fL (80.0-94.0); MEAN PLATELET VOLUME 9.3 fL (7.4-11.4); MONOCYTES # (AUTO) 0.4 10^3/uL (0.0-1.0); MONOCYTES % (AUTO) 9.1 %; NEUTROPHILS # (AUTO) 2.8 10^3/uL (1.5-6.6); NEUTROPHILS % (AUTO) 59.4 %; PLT - PLATELET COUNT 266 10^3/uL (130-450); RED BLOOD COUNT 5.11 10^6/uL (4.70-6.10); RED CELL DISTRIBUTION WIDTH 12.2 % (12.0-15.0); WHITE BLOOD COUNT 4.7 x10^3/uL (4.8-10.8)
[2021-06-27] MEDS ORDERED: ONDANSETRON 4 MG/2 ML VIAL IVP STA (13:42)
[2021-06-27 14:02] LABS: ALBUMIN 4.2 g/dL (3.2-5.5); ALBUMIN/GLOBULIN RATIO 1.6 (1.0-2.2); BILIRUBIN,TOTAL 0.8 mg/dL (0.2-1.0); CALCIUM 9.4 mg/dL (8.5-10.3); POTASSIUM 3.9 mmol/L (3.5-5.0); TOTAL PROTEIN 6.9 g/dL (6.7-8.2)
--- NOTE | 2021-06-27 14:11 | XRAY Report ---
PROCEDURE: Chest 1 View X-Ray INDICATIONS: Chest pain TECHNIQUE: One view of the chest was acquired. COMPARISON: None FINDINGS: Surgical changes and devices: None. Lungs and pleura: No pleural effusions or pneumothorax. Lungs are clear. Mediastinum: Mediastinal contours appear normal. Heart size is normal. Bones and chest wall: No suspicious bony lesions. Overlying soft tissues appear unremarkable. IMPRESSION: No acute cardiopulmonary findings Reviewed by: Ezra Hutchison MD on 06/27/2021 1:10 PM [facility] Approved by: Ezra Hutchison MD on 06/27/2021 1:10 PM [facility] Station ID: [id number]
[2021-06-27 14:51] VITALS: BP 118/81
== END 2021-06-27 14:55 | disposition home or self-care (01) ==
LOC: ED 12:58
DX: I48.0 Paroxysmal atrial fibrillation (principal)
CPT/HCPCS: 36415; 80053; 83690; 84443; 84484; 85025; 93005; 99284

== ENCOUNTER 2021-08-08 14:17 | Outpatient (CLI) | payer OTHER ==
--- NOTE | 2021-08-08 18:00 | Ultrasound Report ---
PROCEDURE: Pelvic Limited or F/U INDICATIONS: RIGHT INGUINAL HERNIA TECHNIQUE: Real-time transabdominal scanning was performed of the right inguinal region with and without Valsalv a utilizing a high megahertz linear transducer, with image documentation. COMPARISON: CT abdomen and pelvis dated 02/09/2021. FINDINGS: There is a right inguinal hernia present. The neck is 2.6 cm on Valsalva and 0.9 cm without Valsalva. With Valsalva, there is reducible fat and bowel. IMPRESSION: Reducible right inguinal hernia containing fat and bowel. Reviewed by: Aime Jaimes MD on 08/08/2021 5:59 PM PDT Approved by: Aime Jaimes MD on 08/08/2021 5:59 PM PDT Station ID: [id number]
== END 2021-08-08 14:18 | disposition home or self-care (01) ==
LOC: DI 14:17
PROVIDERS: ATTEND Family Medicine
DX: K40.90 Unilateral inguinal hernia, without obstruction or gangrene, not specified as recurrent (principal)

== ENCOUNTER 2021-11-30 08:35 | Emergency (ER) | payer OTHER ==
[2021-11-30] MEDS ORDERED: SODIUM CHLORIDE 0.9% 1,000 ML IV STA (09:05)
[2021-11-30 09:32] LABS: BILIRUBIN,URINE NEGATIVE (NEGATIVE); GLUCOSE, URINE (UA) NEGATIVE (NEGATIVE); KETONES,URINE (UA) NEGATIVE (NEGATIVE); LEUKOCYTE ESTERASE, URINE NEGATIVE (NEGATIVE); NITRITE,URINE NEGATIVE (NEGATIVE); OCCULT BLOOD,URINE NEGATIVE (NEGATIVE); PH,URINE 5.5 PH (5.0-7.5); PROTEIN,URINE NEGATIVE (NEGATIVE); UROBILINOGEN,URINE 0.2 (NORMAL) E.U./dL (NORMAL)
[2021-11-30 09:34] LABS: BASOPHILS # (AUTO) 0.1 10^3/uL (0.0-0.1); BASOPHILS % (AUTO) 1.1 %; EOSINOPHILS # (AUTO) 0.1 10^3/uL (0.0-0.7); EOSINOPHILS % (AUTO) 2.3 %; HCT - HEMATOCRIT 48.3 % (42.0-52.0); HGB - HEMOGLOBIN 16.6 g/dL (14.0-18.0); LYMPHOCYTES # (AUTO) 1.4 10^3/uL (1.5-3.5); LYMPHOCYTES % (AUTO) 25.3 %; MEAN CORPUSCULAR HEMOGLOBIN 31.6 pg (27.0-31.0); MEAN CORPUSCULAR HGB CONC 34.4 g/dL (32.0-36.0); MEAN PLATELET VOLUME 9.2 fL (7.4-11.4); MONOCYTES # (AUTO) 0.5 10^3/uL (0.0-1.0); MONOCYTES % (AUTO) 8.4 %; NEUTROPHILS # (AUTO) 3.5 10^3/uL (1.5-6.6); NEUTROPHILS % (AUTO) 62.7 %; PLT - PLATELET COUNT 266 10^3/uL (130-450); RED BLOOD COUNT 5.25 10^6/uL (4.70-6.10); RED CELL DISTRIBUTION WIDTH 11.9 % (12.0-15.0); WHITE BLOOD COUNT 5.6 x10^3/uL (4.8-10.8)
[2021-11-30 09:41] LABS: CLARITY,URINE CLEAR (CLEAR)
[2021-11-30 09:47] LABS: ALBUMIN 4.8 g/dL (3.2-5.5); ALBUMIN/GLOBULIN RATIO 1.5 (1.0-2.2); BILIRUBIN,TOTAL 0.9 mg/dL (0.2-1.0); CALCIUM 9.7 mg/dL (8.5-10.3); TOTAL PROTEIN 7.9 g/dL (6.7-8.2)
--- NOTE | 2021-11-30 09:58 | CT Report ---
PROCEDURE: Abdomen/Pelvis WO INDICATIONS: L flank pain TECHNIQUE: Noncontrast 5 mm thick sections acquired from the diaphragms to the symphysis. 5 mm coronal and sagi ttal reformats were then performed. For radiation dose reduction, the following was used: automated exposure control, adjustment of mA and/or kV according to patient size. COMPARISON: CT abdomen and pelvis 02/09/2021. FINDINGS: Image quality: Excellent. ABDOMEN: Lung bases: Lung bases are clear. Heart size is normal. Solid organs: Liver and spleen are normal in size. A few small hepatic hypodensities are unchanged. Gallbladder is surgically absent. Pancreas is normal in contours. No adrenal nodules. Kidneys are normal in size, without hydronephrosis or nephrolithiasis. Peritoneum and bowel: Unenhanced bowel loops demonstrate normal wall thickness and caliber. Divertic ulosis. No diverticulitis identified. The appendix is not dilated. There is prominent stool in the ri ght colon. No free fluid or air. Nodes and vessels: No retroperitoneal or mesenteric adenopathy by size criteria. Aorta and inferior vena cava are normal in caliber. Miscellaneous: Tiny umbilical hernia. PELVIS: Genitourinary: Bladder wall thickness is normal. No bladder stones. Miscellaneous: No inguinal hernias or adenopathy. Bones: No suspicious bony lesions. Small bone island L1 posterior spinous process. No vertebral bod y compression fractures. IMPRESSION: 1. No hydronephrosis. No kidney stones. 2. Diverticulosis. No diverticulitis demonstrated. No free fluid. Reviewed by: Felix Badillo MD on 11/30/2021 9:57 AM [facility] Approved by: Felix Badillo MD on 11/30/2021 9:57 AM PST Station ID: [id number]
--- NOTE | 2021-11-30 10:08 | ED Physician Documentation ---
PD HPI BACK PAIN - Stated complaint Stated Complaint: LOW BACK PX - Chief complaint Chief Complaint: Back Pain - History obtained from History obtained from: Patient - History of Present Illness Timing - onset: How many days ago (2) Timing - duration: Days (3) Timing - details: Gradual onset, Still present, Waxing and waning Pain level max: 7 Pain level now: 3 Location: Left Quality: Pain, Sharp Associated symptoms: No: Fever, Weakness, Numbness, Incontinent of urine, Unable to urinate, Hematuria, Incontinent of stool Improves with: Other (nothing) Worsened by: Other (nothing) Similar symptoms before: Has not had sx before Recently seen: Not recently seen - Additional information Additional information: Previously well 66-year-old male has developed some pain in his left back. There are no modifying factors to this. He thought maybe it was a musculoskeletal thing does not seem to be any different with movement or stretching or position. He has had the pain a maximum of 7 out of 10 he has had times where he has had no pain at all and this morning when pain is present at a 3 out of 10 he is come to the emergency department for evaluation. His past medical history is significant for atrial tachycardia for which he has had an ablation. Review of Systems Constitutional: reports: Chills, Myalgias, Fatigue. denies: Fever Eyes: denies: Decreased vision Ears: denies: Ear pain Nose: denies: Congestion Throat: denies: Sore throat Cardiac: denies: Chest pain / pressure, Palpitations Respiratory: denies: Dyspnea, Cough GI: reports: Abdominal Pain. denies: Nausea, Vomiting, Constipation, Diarrhea : denies: Dysuria, Frequency Musculoskeletal: reports: Back pain. denies: Neck pain, Extremity pain PD PAST MEDICAL HISTORY - Past Medical History Cardiovascular: None Respiratory: None Neuro: None Endocrine/Autoimmune: None GI: Diverticulitis, Cholelithiasis : Benign prostate hypertrophy HEENT: None Psych: None Musculoskeletal: None Derm: None - Past Surgical History Past Surgical History: Yes General: Cholecystectomy Ortho: Rotator cuff repair, Spine surgery HEENT: Tonsil/Adenoidectomy - Present Medications Home Medications: Ambulatory Orders Medication Instructions Recorded Confirmed Doxazosin [Cardura] 8 mg PO DAILY 04/07/13 02/09/21 Finasteride 5 mg PO DAILY 04/07/13 02/09/21 levoFLOXacin [Levaquin] 500 mg PO DAILY #10 tablet 02/09/21 - Allergies Allergies/Adverse Reactions: Allergies Allergy/AdvReac Type Severity Reaction Status Date / Time oxycodone HCl * Allergy Intermediate Rash Verified 06/27/21 13:08 [From Endocet] acetaminophen [From Vicodin] Allergy Rash Verified 11/30/21 08:44 hydrocodone AdvReac Rash Verified 06/27/21 13:08 - Social History Does the pt smoke?: No Smoking Status: Never smoker Does the pt drink ETOH?: No Does the pt have substance abuse?: No - Immunizations Immunizations are current?: Yes - POLST Patient has POLST: No PD ED PE NORMAL - Vitals Vital signs reviewed: Yes (hypertensive ) - General General: Alert and oriented X 3, No acute distress, Well developed/nourished - HEENT HEENT: Atraumatic, PERRL - Neck Neck: Supple, no meningeal sign, No bony TTP - Cardiac Cardiac: RRR, No murmur - Respiratory Respiratory: No respiratory distress, Clear bilaterally - Abdomen Abdomen: Normal bowel sounds, Soft, Non tender, Non distended, No organomegaly - Back Back: No CVA TTP, No spinal TTP - Derm Derm: Normal color, Warm and dry, No rash - Extremities Extremities: No deformity, No edema - Neuro Neuro: Alert and oriented X 3, 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 No: Normal affect Results - Vitals Vitals: Vital Signs - 24 hr 11/30/21 08:45 Temperature 36.7 C Heart Rate 69 Respiratory 20 Rate Blood Pressure 147/80 H O2 Saturation 98 Oxygen O2 Source Room air - Labs Labs: Laboratory Tests 11/30/21 11/30/21 11/30/21 09:09 09:09 09:09 WBC 5.6 RBC 5.25 Hgb 16.6 Hct 48.3 MCV 92.0 MCH 31.6 H MCHC 34.4 RDW 11.9 L Plt Count 266 MPV 9.2 Neut # (Auto) 3.5 Lymph # (Auto) 1.4 L Hart # (Auto) 0.5 Eos # (Auto) 0.1 Baso # (Auto) 0.1 Absolute Nucleated RBC 0.00 Nucleated RBC % 0.0 Sodium 136 Potassium 4.0 Chloride 101 Carbon Dioxide 27 Anion Gap 8.0 BUN 14 Creatinine 1.0 Estimated GFR (MDRD) 75 L Glucose 106 H Calcium 9.7 Total Bilirubin 0.9 AST 19 ALT 21 Alkaline Phosphatase 86 Total Protein 7.9 Albumin 4.8 Globulin 3.1 Albumin/Globulin Ratio 1.5 Lipase 31 Urine Color LIGHT YELLOW Urine Clarity CLEAR Urine pH 5.5 Ur Specific [place] 1.010 Urine Protein NEGATIVE Urine Glucose (UA) NEGATIVE Urine Ketones NEGATIVE Urine Occult Blood NEGATIVE Urine Nitrite NEGATIVE Urine Bilirubin NEGATIVE Urine Urobilinogen 0.2 (NORMAL) Ur Leukocyte Esterase NEGATIVE Ur Microscopic Review NOT INDICATED Urine Culture Comments NOT INDICATED Procedures - Bedside sono Bedside sono by EMP: With use of bedside ultrasound the left kidney is imaged there is no evidence of hydronephrosis. The kidney is sonographically nontender. PD MEDICAL DECISION MAKING - ED course Complexity details: reviewed results, re-evaluated patient, considered differential, d/w patient ED course: 66-year-old male with left flank pain with no modifiable factors has a CT scan done of his abdomen and pelvis with IV contrast without evidence of diverticulitis kidney stone or vascular abnormality. He does have a fair stool burden. This is shared with the patient as a potential cause for his pain. Departure - Departure Disposition: 01 Home, Self Care Clinical Impression: Constipation Qualifiers: Constipation type: unspecified constipation type Qualified Code(s): K59.00 - Constipation, unspecified Condition: Stable Instructions: ED Constipation Follow-Up: Max Mcclelland DO [Primary Care Provider] - Comments: Taz, today we did not find any serious abnormality on your CT scan. There was in a fair stool burden and the recommendation is to take some milk of magnesia when you get back home. The expectation is that your pain should diminish and resolve. We did not find an alternative reason for the pain on today's evaluation.
[2021-11-30 10:16] VITALS: BP 135/106
== END 2021-11-30 10:23 | disposition home or self-care (01) ==
LOC: ED 08:35
DX: K59.00 Constipation, unspecified (principal)
CPT/HCPCS: 36415; 80053; 81001; 81003; 83690; 85025; 87086; 99282; 99284

== ENCOUNTER 2022-03-30 08:00 | Outpatient (CLI) | payer OTHER | END 2022-03-30 23:59 | disposition home or self-care (01) | LOC: LAB 08:00 | PROVIDERS: ATTEND Physician Assistant Medical | DX: J30.2 Other seasonal allergic rhinitis (principal); Z20.822 Contact with and (suspected) exposure to COVID-19 ==

== ENCOUNTER 2023-01-04 08:00 | Outpatient (CLI) | payer OTHER | END 2023-01-04 23:59 | disposition home or self-care (01) | LOC: LAB.S 08:00 | PROVIDERS: ATTEND Physician Assistant Medical | DX: N39.0 Urinary tract infection, site not specified (principal) | CPT/HCPCS: 87086; 87181 ==

== ENCOUNTER 2024-01-30 16:14 | Outpatient (CLI) | payer OTHER ==
[2024-01-30 16:31] LABS: BASOPHILS # (AUTO) 0.1 10^3/uL (0.0-0.1); BASOPHILS % (AUTO) 1.2 %; EOSINOPHILS # (AUTO) 0.3 10^3/uL (0.0-0.7); HCT - HEMATOCRIT 43.1 % (42.0-52.0); HGB - HEMOGLOBIN 14.5 g/dL (14.0-18.0); LYMPHOCYTES % (AUTO) 29.4 %; MEAN CORPUSCULAR HEMOGLOBIN 31.3 pg (27.0-31.0); MEAN CORPUSCULAR HGB CONC 33.6 g/dL (32.0-36.0); MEAN CORPUSCULAR VOLUME 93.1 fL (80.0-94.0); MEAN PLATELET VOLUME 9.8 fL (7.4-11.4); MONOCYTES # (AUTO) 0.7 10^3/uL (0.0-1.0); MONOCYTES % (AUTO) 9.8 %; NEUTROPHILS # (AUTO) 3.7 10^3/uL (1.5-6.6); NEUTROPHILS % (AUTO) 55.5 %; PLT - PLATELET COUNT 302 10^3/uL (130-450); RED BLOOD COUNT 4.63 10^6/uL (4.70-6.10); RED CELL DISTRIBUTION WIDTH 12.5 % (12.0-15.0); WHITE BLOOD COUNT 6.7 x10^3/uL (4.8-10.8)
[2024-01-30 16:48] LABS: ALBUMIN 4.6 g/dL (3.2-5.5); ALBUMIN/GLOBULIN RATIO 1.9 (1.0-2.2); ALKALINE PHOSPHATASE 88 IU/L (42-121); ALT ALANINE AMINOTRANSFERASE 12 IU/L (10-60); AST ASPARTATE AMINOTRANSFERASE 15 IU/L (10-42); BILIRUBIN,TOTAL 0.8 mg/dL (0.2-1.0); BUN - BLOOD UREA NITROGEN 11 mg/dL (6-20); CARBON DIOXIDE - CO2 31 mmol/L (21-32); CHLORIDE 102 mmol/L (101-111); CHOL/HDL RATIO 4.8 (<5.0); CHOLESTEROL 196 mg/dL; GFR - MDRD 75 (>89); GLUCOSE 108 mg/dL (74-104); HDL CHOLESTEROL 41 mg/dL; LDL CHOLESTEROL,CALCULATED 121 mg/dL; POTASSIUM 3.7 mmol/L (3.5-4.5); SODIUM 137 mmol/L (135-145); TRIGLYCERIDES 169 mg/dL (48-352); VLDL CHOLESTEROL 34 mg/dL
[2024-01-30 16:59] LABS: THYROID STIMULATING HORMONE 0.73 uIU/mL (0.34-5.60)
[2024-01-30 21:07] LABS: ESTIMATED AVERAGE GLUCOSE 97 mg/dL (70-100)
== END 2024-01-30 16:15 | disposition home or self-care (01) ==
LOC: LAB 16:14
PROVIDERS: ATTEND Family Medicine
DX: Z01.812 Encounter for preprocedural laboratory examination (principal); Z12.5 Encounter for screening for malignant neoplasm of prostate
CPT/HCPCS: 36415; 80053; 80061; 83036; 83721; 84153; 84443; 85025

== ENCOUNTER 2024-02-05 16:51 | Emergency (ER) | payer OTHER ==
[2024-02-05 17:05] VITALS: BP 150/78; O2SAT 99
--- NOTE | 2024-02-05 17:15 | ED Physician Documentation ---
History of Present Illness - Stated complaint Stated Complaint: LT EYE PX - Chief complaint Chief Complaint: Heent - History obtained from History obtained from: Patient - History of Present Illness Timing: Yesterday Pain level max: 2 Pain level now: 2 - Additonal information Additional information: Patient is a 68-year-old male who states that yesterday he started feeling like there was something in his left eye. He states noticed it was red today. No drainage. No surrounding erythema. Does not wear contacts but does wear glasses. Does not recall any trauma. Nothing makes it better or worse. No vision changes. He has been around others who have been sick. No fever. Cough, congestion. Review of Systems Constitutional: denies: Fever, Chills Respiratory: denies: Cough GI: denies: Nausea, Vomiting, Diarrhea Skin: denies: Rash Musculoskeletal: denies: Neck pain, Back pain PD PAST MEDICAL HISTORY - Past Medical History Past Medical History: Yes Cardiovascular: Atrial fibrillation Respiratory: None Neuro: None Endocrine/Autoimmune: None GI: Diverticulitis, Cholelithiasis : Benign prostate hypertrophy HEENT: Chronic vision loss Psych: None Musculoskeletal: Osteoarthritis Derm: None - Past Surgical History Past Surgical History: Yes General: Cholecystectomy Ortho: Rotator cuff repair, Spine surgery Cardiovascular: Other HEENT: Tonsil/Adenoidectomy - Present Medications Home Medications: Ambulatory Orders Medication Instructions Recorded Confirmed Finasteride 5 mg PO DAILY 04/07/13 02/05/24 Diltiazem HCl [Diltiazem 12Hr ER] 120 mg PO BID 06/17/22 02/05/24 Tamsulosin [Flomax] 0.4 mg PO DAILY 06/17/22 02/05/24 Polymyxin B/Trimeth Ophth Drop 1 drops LEFTEYE Q3H 7 Days #1 each 02/05/24 [Polytrim Ophth Drops] - Allergies Allergies/Adverse Reactions: Allergies Allergy/AdvReac Type Severity Reaction Status Date / Time hydrocodone AdvReac Rash Verified 02/05/24 16:53 - Social History Does the pt smoke?: No Smoking Status: Never smoker Does the pt drink ETOH?: No Does the pt have substance abuse?: No - Immunizations Immunizations are current?: Yes - POLST Patient has POLST: No PD ED PE NORMAL - Vitals Vital signs reviewed: Yes - General General: Alert and oriented X 3, No acute distress - HEENT HEENT: PERRL, EOMI, Moist mucous membranes, Other (No pain with extraocular movements. Right eye is normal. Left eye has conjunctival injection. Mild fluorescein uptake on the medial aspect of the cornea. Eyelids everted, no foreign body seen.) - Neck Neck: Supple, no meningeal sign - Derm Derm: Warm and dry - Neuro Neuro: Alert and oriented X 3 - Psych Psych: Normal mood, Normal affect Results - Vitals Vitals: Vital Signs - 24 hr 02/05/24 16:53 Temperature 36.8 C Heart Rate 60 Respiratory 16 Rate Blood Pressure 150/78 H O2 Saturation 99 Oxygen O2 Source Room air PD Medical Decision Making - ED course Complexity details: considered differential, d/w patient ED course: Patient appears to have a mild corneal abrasion on the left eye. Will place on Polytrim ophthalmic. Will have him follow-up with his eye doctor if he fails to improve as expected. Patient counseled regarding signs and symptoms for which I believe and urgent re-evaluation would be necessary. Patient with good understa nding of and agreement to plan and is comfortable going home at this time This document was made in part using voice recognition software. While efforts are made to proofread this document, sound alike and grammatical errors may occur. No evidence of orbital or periorbital cellulitis. Departure - Departure Disposition: 01 Home, Self Care Clinical Impression: Corneal abrasion, left Qualifiers: Encounter type: initial encounter Qualified Code(s): S05.02XA - Injury of conjunctiva and corneal abrasion without foreign body, left eye, initial encounter Condition: Good Instructions: ED Eye Injury Corneal Abrasion Follow-Up: your,doctor in 3 days if not better [Other] Prescriptions: Polymyxin B/Trimeth Ophth Drop [Polytrim Ophth Drops] 1 drops LEFTEYE Q3H 7 Days #1 each Comments: Your prescription was sent to [facility] in [place]. Please use the drops as prescribed. You can use warm compresses to the eye as well. Please return if you worsen. You should improve over the next 24 hours. Forms: PCP List Discharge Date/Time: 02/05/24 17:18
== END 2024-02-05 17:18 | disposition home or self-care (01) ==
LOC: ED 16:51
DX: S05.02XA Injury of conjunctiva and corneal abrasion without foreign body, left eye, initial encounter (principal); X58.XXXA Exposure to other specified factors, initial encounter; I48.91 Unspecified atrial fibrillation; N40.0 Benign prostatic hyperplasia without lower urinary tract symptoms
CPT/HCPCS: 99282; 99283

== ENCOUNTER 2024-03-11 15:27 | Emergency (ER) | payer OTHER ==
[2024-03-11 16:15] LABS: ALBUMIN 4.4 g/dL (3.2-5.5); ALBUMIN/GLOBULIN RATIO 1.8 (1.0-2.2); BILIRUBIN,TOTAL 0.8 mg/dL (0.2-1.0); CALCIUM 9.8 mg/dL (8.5-10.3); CREATININE 1.5 mg/dL (0.6-1.3); POTASSIUM 3.9 mmol/L (3.5-4.5); TOTAL PROTEIN 6.8 g/dL (6.4-8.9)
--- NOTE | 2024-03-11 16:22 | ED Physician Documentation ---
PD HPI ABD PAIN - Stated complaint Stated Complaint: ABD PX - Chief complaint Chief Complaint: Abd Pain - History obtained from History obtained from: Patient - Additional information Additional information: 69-year-old gentleman with history of paroxysmal atrial fibrillation status post successful ablation, not currently anticoagulated, remote gallbladder removal, ACDF, remote inguinal hernia repair presents for evaluation of abdominal and chest pain. About a week ago he had an episode while eating [place] [employer] fries where he developed chest tightness. He felt like he could not swallow and he got up and walked around for a minute and it went away. He had 2 episodes similarly over the last couple of days, both also after eating. Now he has some mild residual soreness in the epigastrium. PD PAST MEDICAL HISTORY - Past Medical History Past Medical History: Yes Cardiovascular: Atrial fibrillation Respiratory: None Neuro: None Endocrine/Autoimmune: None GI: Diverticulitis, Cholelithiasis : Benign prostate hypertrophy HEENT: Chronic vision loss Psych: None Musculoskeletal: Osteoarthritis Derm: None - Past Surgical History Past Surgical History: Yes General: Cholecystectomy Ortho: Rotator cuff repair, Spine surgery Cardiovascular: Other HEENT: Tonsil/Adenoidectomy - Present Medications Home Medications: Ambulatory Orders Medication Instructions Recorded Confirmed Finasteride 5 mg PO DAILY 04/07/13 03/11/24 Diltiazem HCl [Diltiazem 12Hr ER] 120 mg PO BID 06/17/22 03/11/24 Tamsulosin [Flomax] 0.4 mg PO DAILY 06/17/22 03/11/24 Aspirin Chewable [[place] 81 mg PO DAILY 03/11/24 03/11/24 Aspirin] Nitroglycerin [Nitrostat] 0.4 mg SL Q5MIN PRN #1 tab 03/11/24 Omeprazole 40 mg PO DAILY #30 cap 03/11/24 - Allergies Allergies/Adverse Reactions: Allergies Allergy/AdvReac Type Severity Reaction Status Date / Time hydrocodone AdvReac Rash Verified 03/11/24 15:33 - Social History Does the pt smoke?: No Smoking Status: Never smoker Does the pt drink ETOH?: No Does the pt have substance abuse?: No - Immunizations Immunizations are current?: Yes - POLST Patient has POLST: No PD ED PE NORMAL - Vitals Vital signs reviewed: Yes - General General: Alert and oriented X 3, No acute distress - HEENT HEENT: PERRL, EOMI - Neck Neck: Supple, no meningeal sign, No bony TTP - Cardiac Cardiac: RRR, No murmur - Respiratory Respiratory: No respiratory distress, Clear bilaterally - Abdomen Abdomen: Non tender - Derm Derm: Normal color, Warm and dry - Extremities Extremities: No deformity, No tenderness to palpate, No edema, No calf tenderness / cord - Neuro Neuro: Alert and oriented X 3, Normal speech Results - Vitals Vitals: Vital Signs - 24 hr 03/11/24 03/11/24 15:33 16:12 Temperature 36.8 C Heart Rate 68 55 L Respiratory 16 18 Rate Blood Pressure 160/82 H 155/78 H O2 Saturation 99 99 Oxygen O2 Source Room air - EKG (time done) 1646 EKG releavant findings:: EKG personally interpreted by author of this note. Relevant findings are: Rate: Rate (enter#) (47) Rhythm: Sinus bradycardia [place]: Normal Intervals: Normal NM QRS: Normal Ischemia: Normal ST segments - Labs Labs: Laboratory Tests 03/11/24 15:50 Sodium 139 Potassium 3.9 Chloride 105 Carbon Dioxide 29 Anion Gap 5.0 L BUN 12 Creatinine 1.5 H Estimated GFR (MDRD) 47 L Glucose 118 H Calcium 9.8 Total Bilirubin 0.8 AST 16 ALT 15 Alkaline Phosphatase 74 Total Protein 6.8 Albumin 4.4 Globulin 2.4 Albumin/Globulin Ratio 1.8 Lipase 24 PD Medical Decision Making - ED course ED course: 69-year-old gentleman with history most consistent with esophageal spasm and that he gets this feeling of stuck food but cannot vomit nor swallow briefly after eating., differential would also include hiatal hernia, gastritis/PUD. ACS is considered less likely but will screen with EKG. Will trial GI cocktail. CMP is unremarkable. No evidence of pancreatitis. EKG without ischemia. He did get significant relief from GI cocktail confirming GI source. Will give him nitroglycerin for presumed esophageal spasm pending proton pump inhibitor kicking in. Departure - Departure Disposition: 01 Home, Self Care Condition: Good Record reviewed to determine appropriate education?: Yes Instructions: ED Spasm Esophageal Prescriptions: Nitroglycerin [Nitrostat] 0.4 mg SL Q5MIN PRN #1 tab PRN Reason: Chest Pain Omeprazole 40 mg PO DAILY #30 cap Comments: As discussed, I suspect you have esophageal spasm as the cause of your pain. Gastritis is another possibility. Either way the medication should help. If having persistent symptoms it would be reasonable for you to have an upper endoscopy. In the meantime the omeprazole should kick in over the next few days, the nitroglycerin will help with spasm in the meantime. Return if worse. Follow-up with your primary care physician. Forms: PCP List
[2024-03-11] MEDS: LIDOCAINE VISCOUS 2% 15 ML UDC MM STA (16:40)
[2024-03-11] MEDS: MAG HYDROX/AL HYDROX/SIMETH 30 ML UDC PO STA (16:40)
[2024-03-11] MEDS: PANTOPRAZOLE 40 MG TABLET PO STA (17:29)
[2024-03-11 17:53] VITALS: BP 158/88; O2SAT 98
== END 2024-03-11 17:47 | disposition home or self-care (01) ==
LOC: ED 15:27
DX: K22.4 Dyskinesia of esophagus (principal); I48.0 Paroxysmal atrial fibrillation; N40.0 Benign prostatic hyperplasia without lower urinary tract symptoms
CPT/HCPCS: 36415; 80053; 83690; 93005; 99283; 99284; A9270

== ENCOUNTER 2024-04-24 16:34 | Outpatient (CLI) | payer OTHER | END 2024-04-24 16:35 | disposition home or self-care (01) | LOC: RT 16:34 | PROVIDERS: ATTEND Family Medicine | DX: Z01.810 Encounter for preprocedural cardiovascular examination (principal) | CPT/HCPCS: 93005 ==